=== PATIENT | female | born 1965 | race Caucasian/White ===

== ENCOUNTER 2016-08-11 11:43 | Outpatient (CLI) | payer OTHER ==
[~2016-08-11] VITALS: Ht 165.1 cm; Wt 74.0 kg
[~2016-08-11 11:43] MED LIST: ACET50TA PO; ACET650T12 PO; AUGM875T27 PO; B-12; COLA100C PO; FLAG500T PO; INFL10VL IV; LEVA250T PO; LEVA500T PO; PENT500C PO; PENTASA; PERC5TAB6 PO; TYLE325T5 PO; VITA50TA15 PO; ZOFR20TA PO; diphenhydrAMINE 25 MG CAP PO SCH; nascobal
[2016-08-11] MEDS ORDERED: inFLIXimab INJECTION 600 MG in NS 190 ML IV ONE (13:00)
[2016-08-11] MEDS ORDERED: NS 1,000 ML IV SCH (13:00)
== END 2016-08-11 15:00 | disposition home or self-care (01) ==
LOC: M INFU 11:43
PROVIDERS: ATTEND Internal Medicine Gastroenterology
DX: K50.00 Crohn's disease of small intestine without complications (principal)
CPT/HCPCS: 96413; 96415; J1745

== ENCOUNTER → 2016-10-02 | Outpatient (REF) | payer OTHER ==
[~2016-10-02] MED LIST changes: -COLA100C PO; +COLA100C3 PO; -diphenhydrAMINE 25 MG CAP PO SCH
== END ==
LOC: M LAB REF 09:23
PROVIDERS: ATTEND Physician Assistant
DX: J02.9 Acute pharyngitis, unspecified (principal)

== ENCOUNTER 2016-10-13 08:07 | Outpatient (CLI) | payer OTHER ==
[~2016-10-13] VITALS: Ht 130.8 cm; Wt 74.0 kg
[~2016-10-13 08:07] MED LIST changes: +diphenhydrAMINE 25 MG CAP PO SCH
[2016-10-13] MEDS ORDERED: NS 1,000 ML IV SCH (08:15)
[2016-10-13] MEDS ORDERED: inFLIXimab INJECTION 600 MG in NS 190 ML IV ONE (08:15)
== END 2016-10-13 11:00 | disposition home or self-care (01) ==
LOC: M INFU 08:07
PROVIDERS: ATTEND Internal Medicine Gastroenterology
DX: K50.00 Crohn's disease of small intestine without complications (principal); Z79.52 Long term (current) use of systemic steroids; Z79.899 Other long term (current) drug therapy; Z88.2 Allergy status to sulfonamides
CPT/HCPCS: 96413; 96415; J1745

== ENCOUNTER 2016-12-08 08:23 | Outpatient (CLI) | payer OTHER ==
[~2016-12-08] VITALS: Ht 165.1 cm; Wt 74.0 kg
[2016-12-08] MEDS ORDERED: NS 1,000 ML IV SCH (08:30)
[2016-12-08] MEDS ORDERED: inFLIXimab INJECTION 600 MG in NS 190 ML IV ONE (08:30)
== END 2016-12-08 11:25 | disposition home or self-care (01) ==
LOC: M INFU 08:23
PROVIDERS: ATTEND Internal Medicine Gastroenterology
DX: K50.00 Crohn's disease of small intestine without complications (principal); Z79.899 Other long term (current) drug therapy; Z88.2 Allergy status to sulfonamides
CPT/HCPCS: 96413; 96415; J1745

== ENCOUNTER → 2017-01-12 | Outpatient (REF) | payer OTHER ==
[~2017-01-12] MED LIST changes: -COLA100C3 PO; +COLA100C5 PO; +LEVA1TAB PO; +LEVA1TAB2 PO; -LEVA250T PO; -LEVA500T PO; +PERC5TAB12 PO; -PERC5TAB6 PO; -diphenhydrAMINE 25 MG CAP PO SCH
[2017-01-12 14:35] LABS: MEAN CORPUSCULAR HEMOGLOBIN 30.7 pg (27.0-33.0); MEAN CORPUSCULAR HGB CONC 33.8 g/dl (32.0-36.5); MEAN CORPUSCULAR VOLUME 90.6 fl (80.0-96.0); RED CELL DISTRIBUTION WIDTH 13.5 % (11.5-14.5); WHITE BLOOD COUNT 8.2 K/mm3 (4.0-10.0)
[2017-01-12 14:41] LABS: ALBUMIN 3.4 GM/DL (3.2-5.2); ALBUMIN/GLOBULIN RATIO 0.81 (1.00-1.93); ALKALINE PHOSPHATASE 45 U/L (45-117); ALT/SGPT 41 U/L (12-78); ANION GAP 9 MEQ/L (8-16); AST/SGOT 21 U/L (15-37); BILIRUBIN,DIRECT 0.2 MG/DL (0.0-0.2); BILIRUBIN,TOTAL 0.8 MG/DL (0.2-1.0); BLOOD UREA NITROGEN 12 MG/DL (7-18); CALCIUM LEVEL 8.8 MG/DL (8.5-10.1); CARBON DIOXIDE LEVEL 24 MEQ/L (21-32); CHLORIDE LEVEL 104 MEQ/L (98-107); CREATININE FOR GFR 0.88 MG/DL (0.55-1.02); GLOMERULAR FILTRATION RATE > 60.0 (>58); GLUCOSE, FASTING 96 MG/DL (70-105); PHOSPHORUS LEVEL 2.8 MG/DL (2.5-4.9); POTASSIUM SERUM 4.2 MEQ/L (3.5-5.1); SODIUM LEVEL 137 MEQ/L (136-145); TOTAL PROTEIN 7.6 GM/DL (6.4-8.2)
== END ==
LOC: M LABDRAW1 13:58
PROVIDERS: ATTEND Internal Medicine Gastroenterology
DX: K50.80 Crohn's disease of both small and large intestine without complications (principal)

== ENCOUNTER 2017-02-06 07:49 | Outpatient (CLI) | payer OTHER ==
[~2017-02-06] VITALS: Ht 165.1 cm; Wt 74.0 kg
[~2017-02-06 07:49] MED LIST changes: +diphenhydrAMINE 25 MG CAP PO SCH
[2017-02-06] MEDS ORDERED: NS 1,000 ML IV SCH (08:00)
[2017-02-06] MEDS ORDERED: inFLIXimab INJECTION 600 MG in NS 190 ML IV ONE (08:00)
== END 2017-02-06 10:45 | disposition home or self-care (01) ==
LOC: M INFU 07:49
PROVIDERS: ATTEND Internal Medicine Gastroenterology
DX: K50.00 Crohn's disease of small intestine without complications (principal); Z79.899 Other long term (current) drug therapy; Z88.2 Allergy status to sulfonamides

== ENCOUNTER → 2017-04-02 | Outpatient (REF) | payer OTHER ==
[~2017-04-02] MED LIST changes: -diphenhydrAMINE 25 MG CAP PO SCH
== END ==
LOC: M SFHCWAGY 08:39
PROVIDERS: ATTEND Nurse Practitioner Family
DX: Z12.4 Encounter for screening for malignant neoplasm of cervix (principal); N76.0 Acute vaginitis

== ENCOUNTER → 2017-04-02 | Outpatient (CLI) | payer OTHER ==
--- NOTE | 2017-04-02 10:27 | REP ---
Bilateral screening digital mammogram: T 29 T 26 April 10, 2017. Comparison is 03/08 2009. The breast parenchyma is moderately dense a heterogeneous pattern, unchanged. Code T12. Impression: There is no evidence of malignancy. BIRADS category 1 negative mammogram. T1 T 25 T 20 The patient letter M1. Signed by Destin Willson MD 04/02/2017 10:19 A
== END ==
LOC: M WHC 08:13
PROVIDERS: ATTEND Nurse Practitioner Family
DX: Z12.31 Encounter for screening mammogram for malignant neoplasm of breast (principal); R92.8 Other abnormal and inconclusive findings on diagnostic imaging of breast

== ENCOUNTER 2017-04-03 11:48 | Outpatient (CLI) | payer OTHER ==
[~2017-04-03] VITALS: Ht 165.1 cm; Wt 74.0 kg
[2017-04-03] MEDS ORDERED: diphenhydrAMINE 25 MG CAP PO ONE (12:15)
[2017-04-03] MEDS ORDERED: NS 1,000 ML IV SCH (12:15)
[2017-04-03] MEDS ORDERED: inFLIXimab INJECTION 600 MG in NS 190 ML IV ONE (13:00)
== END 2017-04-03 14:50 | disposition home or self-care (01) ==
LOC: M INFU 11:48
PROVIDERS: ATTEND Internal Medicine Gastroenterology
DX: K50.90 Crohn's disease, unspecified, without complications (principal); Z88.2 Allergy status to sulfonamides; Z79.899 Other long term (current) drug therapy
CPT/HCPCS: 96413; 96415; J1745

== ENCOUNTER 2017-05-25 08:29 | Outpatient (CLI) | payer OTHER ==
[2017-05-25] MEDS ORDERED: diphenhydrAMINE 25 MG CAP PO ONE (09:00)
[2017-05-25] MEDS ORDERED: ACETAMINOPHEN TAB 650MG DOSE (2X325MG) PO ONE (09:00)
[2017-05-25] MEDS ORDERED: NS 1,000 ML IV SCH (09:00)
[2017-05-25] MEDS ORDERED: inFLIXimab INJECTION 600 MG in NS 190 ML IV ONE (09:00)
== END 2017-05-25 11:55 | disposition home or self-care (01) ==
LOC: M INFU 08:29
PROVIDERS: ATTEND Internal Medicine Gastroenterology
DX: K50.00 Crohn's disease of small intestine without complications (principal); D51.8 Other vitamin B12 deficiency anemias; I10 Essential (primary) hypertension; Z79.899 Other long term (current) drug therapy; Z91.040 Latex allergy status
CPT/HCPCS: 96413; 96415; J1745

== ENCOUNTER → 2017-06-19 | Outpatient (REF) | payer OTHER ==
[2017-06-19 12:55] LABS: BASO # 0.1 10^3/uL (0.0-0.2); EOS # 0.1 10^3/uL (0.0-0.50); EOS % 1.4 % (0.0-3.0); IMMATURE GRANULOCYTE % 0.3 % (0-0); LYMPH # 2.1 10^3/uL (1.5-4.5); LYMPH % 28.4 % (24.0-44.0); MEAN CORPUSCULAR HEMOGLOBIN 29.5 pg (27.0-33.0); MEAN CORPUSCULAR HGB CONC 33.9 g/dl (32.0-36.5); MEAN CORPUSCULAR VOLUME 87.1 fl (80.0-96.0); MONO # 0.5 10^3/uL (0.0-0.8); NEUTROPHILS # 4.5 10^3/uL (1.8-7.7); NEUTROPHILS % 61.9 % (36.0-66.0); PLATELET COUNT, AUTOMATED 296 10^3/uL (150-450); RED CELL DISTRIBUTION WIDTH 13.7 % (11.5-14.5); WHITE BLOOD COUNT 7.3 10^3/uL (4.0-10.0)
[2017-06-19 13:17] LABS: ALBUMIN 3.6 GM/DL (3.2-5.2); ALBUMIN/GLOBULIN RATIO 0.95 (1.00-1.93); ALKALINE PHOSPHATASE 57 U/L (45-117); ALT/SGPT 29 U/L (12-78); ANION GAP 9 MEQ/L (8-16); AST/SGOT 16 U/L (7-37); BILIRUBIN,TOTAL 0.6 MG/DL (0.2-1.0); BLOOD UREA NITROGEN 13 MG/DL (7-18); CALCIUM LEVEL 8.5 MG/DL (8.5-10.1); CARBON DIOXIDE LEVEL 27 MEQ/L (21-32); CHLORIDE LEVEL 104 MEQ/L (98-107); CHOLESTEROL LEVEL 150 MG/DL (<200); CREATININE FOR GFR 0.94 MG/DL (0.55-1.02); GLOMERULAR FILTRATION RATE > 60.0 (>58); GLUCOSE, FASTING 82 MG/DL (70-105); POTASSIUM SERUM 4.3 MEQ/L (3.5-5.1); SODIUM LEVEL 140 MEQ/L (136-145); TOTAL PROTEIN 7.4 GM/DL (6.4-8.2); TRIGLYCERIDES LEVEL 134 MG/DL (<150)
== END ==
LOC: M LABDRAW1 12:29
DX: Z00.00 Encounter for general adult medical examination without abnormal findings (principal)

== ENCOUNTER 2017-07-22 11:52 | Outpatient (CLI) | payer OTHER ==
[2017-07-22] MEDS: NS 1,000 ML IV (12:11)
[2017-07-22] MEDS: ACETAMINOPHEN TAB 650MG DOSE (2X325MG) PO (12:11)
[2017-07-22] MEDS: diphenhydrAMINE 25 MG CAP PO (12:11)
[2017-07-22] MEDS: inFLIXimab INJECTION 600 MG in NS 190 ML IV (12:32)
[2017-07-22] MEDS ORDERED: INFLIXIMAB BIOSIMILAR 600 MG in NS 190 ML IV (13:00)
== END 2017-07-22 14:45 | disposition home or self-care (01) ==
LOC: M INFU 11:52
DX: K50.90 Crohn's disease, unspecified, without complications (principal); Z88.2 Allergy status to sulfonamides; Z79.899 Other long term (current) drug therapy
CPT/HCPCS: 96413

== ENCOUNTER 2017-09-14 08:56 | Outpatient (CLI) | payer OTHER ==
[2017-09-14] MEDS: ACETAMINOPHEN TAB 650MG DOSE (2X325MG) PO (09:15)
[2017-09-14] MEDS: diphenhydrAMINE 25 MG CAP PO (09:21)
[2017-09-14] MEDS: NS 1,000 ML IV (09:59)
[2017-09-14] MEDS: inFLIXimab INJECTION 600 MG in NS 190 ML IV (09:59)
== END 2017-09-14 12:30 | disposition home or self-care (01) ==
LOC: M INFU 08:56
DX: K50.00 Crohn's disease of small intestine without complications (principal); D64.9 Anemia, unspecified; Z79.899 Other long term (current) drug therapy
CPT/HCPCS: J1745

== ENCOUNTER 2017-11-09 11:43 | Outpatient (CLI) | payer OTHER ==
[2017-11-09] MEDS: ACETAMINOPHEN TAB 650MG DOSE (2X325MG) PO (12:18)
[2017-11-09] MEDS: diphenhydrAMINE 25 MG CAP PO (12:18)
[2017-11-09] MEDS: NS 1,000 ML IV (12:19)
[2017-11-09] MEDS: inFLIXimab INJECTION 600 MG in NS 190 ML IV (12:41)
[2017-11-09] MEDS: FILTER 1.2 MICRON (ADULT TPN/MANNITOL/REMICADE) XX (12:41)
== END 2017-11-09 15:00 | disposition home or self-care (01) ==
LOC: M INFU 11:43
DX: K50.00 Crohn's disease of small intestine without complications (principal); Z88.8 Allergy status to other drugs, medicaments and biological substances; Z79.899 Other long term (current) drug therapy
CPT/HCPCS: 96413

== ENCOUNTER → 2018-02-02 | Outpatient (REF) | payer OTHER ==
[2018-02-02 10:52] LABS: HEMATOCRIT 37.2 % (36.0-47.0); HEMOGLOBIN 12.5 g/dl (12.0-15.5); MEAN CORPUSCULAR HEMOGLOBIN 29.1 pg (27.0-33.0); MEAN CORPUSCULAR HGB CONC 33.6 g/dl (32.0-36.5); MEAN CORPUSCULAR VOLUME 86.7 fl (80.0-96.0); PLATELET COUNT, AUTOMATED 255 10^3/uL (150-450); RED BLOOD COUNT 4.29 10^6/uL (4.00-5.40); RED CELL DISTRIBUTION WIDTH 13.9 % (11.5-14.5); WHITE BLOOD COUNT 7.9 10^3/uL (4.0-10.0)
[2018-02-02 11:11] LABS: ALBUMIN/GLOBULIN RATIO 0.81 (1.00-1.93); ALKALINE PHOSPHATASE 41 U/L (45-117); ALT/SGPT 31 U/L (12-78); ANION GAP 8 MEQ/L (8-16); AST/SGOT 19 U/L (7-37); BILIRUBIN,DIRECT 0.2 MG/DL (0.0-0.2); BILIRUBIN,TOTAL 0.6 MG/DL (0.2-1.0); BLOOD UREA NITROGEN 9 MG/DL (7-18); C REACTIVE PROTEIN QUANTITATIV < 0.30 MG/DL (0.00-0.30); CALCIUM LEVEL 8.4 MG/DL (8.5-10.1); CARBON DIOXIDE LEVEL 28 MEQ/L (21-32); CHLORIDE LEVEL 106 MEQ/L (98-107); CREATININE FOR GFR 0.96 MG/DL (0.55-1.30); ERYTHROCYTE SEDIMENTATION RATE 21 mm/hr (0-30); GLOMERULAR FILTRATION RATE > 60.0 (>51); GLUCOSE, FASTING 88 MG/DL (70-100); PHOSPHORUS LEVEL 2.7 MG/DL (2.5-4.9); POTASSIUM SERUM 3.8 MEQ/L (3.5-5.1); SODIUM LEVEL 142 MEQ/L (136-145); TOTAL PROTEIN 6.7 GM/DL (6.4-8.2)
== END ==
LOC: M LABDRAW1 10:19
DX: Z00.00 Encounter for general adult medical examination without abnormal findings (principal)

== ENCOUNTER 2018-03-08 06:56 | Outpatient (CLI) | payer OTHER ==
[2018-03-08] MEDS: ACETAMINOPHEN TAB 650MG DOSE (2X325MG) PO (07:30)
[2018-03-08] MEDS: FILTER 1.2 MICRON (ADULT TPN/MANNITOL/REMICADE) XX (07:30)
[2018-03-08] MEDS: diphenhydrAMINE 25 MG CAP PO (07:44)
[2018-03-08] MEDS: NS 1,000 ML IV (07:44)
[2018-03-08] MEDS: inFLIXimab INJECTION 600 MG in NS 190 ML IV (08:01)
== END 2018-03-08 10:20 | disposition home or self-care (01) ==
LOC: M INFU 06:56
DX: K50.019 Crohn's disease of small intestine with unspecified complications (principal); Z88.2 Allergy status to sulfonamides; Z91.040 Latex allergy status; Z90.49 Acquired absence of other specified parts of digestive tract; Z87.442 Personal history of urinary calculi
CPT/HCPCS: 96365

== ENCOUNTER 2018-05-03 06:56 | Outpatient (CLI) | payer OTHER ==
[2018-05-03] MEDS: FILTER 1.2 MICRON (ADULT TPN/MANNITOL/REMICADE) XX ×2 (07:15)
[2018-05-03] MEDS: NS 1,000 ML IV ×2 (07:15)
[2018-05-03] MEDS: ACETAMINOPHEN TAB 650MG DOSE (2X325MG) PO ×2 (07:15)
[2018-05-03] MEDS: diphenhydrAMINE 25 MG CAP PO ×2 (07:22)
[2018-05-03] MEDS: inFLIXimab INJECTION 600 MG in NS 190 ML IV (07:44)
== END 2018-05-03 10:20 | disposition home or self-care (01) ==
LOC: M INFU 06:56
DX: K50.90 Crohn's disease, unspecified, without complications (principal)
CPT/HCPCS: 96413

== ENCOUNTER 2018-06-28 06:57 | Day surgery (SDC) | payer OTHER ==
[~2018-06-28] VITALS: Ht 160 cm; Wt 71.7 kg
[~2018-06-28 06:57] MED LIST changes: -LEVA1TAB PO; +LEVA250T13 PO; +NASC1SPR; +NS 1,000 ML IV ONE; +PRED20TA PO; -ZOFR20TA PO; +ZOFR4TAB16 PO
[2018-06-28] MEDS ORDERED: fentaNYL 100 MCG/2 ML INJECTION (J3010) As Ordered ONE (07:30)
[2018-06-28] MEDS ORDERED: PROPOFOL 500 MG/50 ML VIAL As Ordered ONE (07:31)
[2018-06-28] MEDS ORDERED: LIDOCAINE 2% INJ 100 MG/5 ML SDV (FOR ANES.) As Ordered ONE (07:31)
--- NOTE | 2018-06-28 08:34 | ROOR ---
Patient Name: Kelly Sewell Procedure Date: 06/28/2018 8:12 AM Date of : 1965 Age: 52 Room: [facility] Gender: Female Note Status: Finalized Procedure: Upper GI endoscopy Indications: Heartburn Providers: Joao Moreland MD Referring MD: Iza Olmos MD Requesting Provider: Medicines: Monitored Anesthesia Care Complications: No immediate complications. Procedure: Pre-Anesthesia Assessment: - The heart rate, respiratory rate, oxygen saturations, blood pressure, adequacy of pulmonary ventilation, and response to care were monitored throughout the procedure. The Endoscope was introduced through the mouth, and advanced to the second part of duodenum. The upper GI endoscopy was accomplished without difficulty. The patient tolerated the procedure well. Findings: The Z-line was regular and was found 35 cm from the incisors. No other significant abnormalities were identified in a careful examination of the stomach. The exam of the duodenum was otherwise normal. Impression: - Z-line regular, 35 cm from the incisors. - No specimens collected. - The examination was otherwise normal. Recommendation: - Patient has a contact number available for emergencies. The signs and symptoms of potential delayed complications were discussed with the patient. Return to normal activities tomorrow. Written discharge instructions were provided to the patient. - Resume previous diet. - Discharge patient to home. - Continue present medications. - Follow an antireflux regimen. - Return to referring physician. - The findings and recommendations were discussed with the patient's family. Joao Moreland MD Joao Moreland MD 06/28/2018 8:34:31 AM This report has been signed electronically. Number of Addenda: 0 Note Initiated On: 06/28/2018 8:12 AM Estimated Blood Loss: Estimated blood loss: none.
[2018-06-28] MEDS ORDERED: PROPOFOL 200 MG/20 ML VIAL As Ordered ONE (08:57)
--- NOTE | 2018-06-28 09:06 | ROOR ---
Patient Name: Kelly Sewell Procedure Date: 06/28/2018 8:13 AM Date of : 1965 Age: 52 Room: [facility] Gender: Female Note Status: Finalized Procedure: Colonoscopy to Anastomosis. Indications: High risk colon cancer surveillance: Crohn's disease Providers: Joao Moreland MD Referring MD: Iza Olmos MD Requesting Provider: Medicines: Monitored Anesthesia Care Complications: No immediate complications. Procedure: Pre-Anesthesia Assessment: - The heart rate, respiratory rate, oxygen saturations, blood pressure, adequacy of pulmonary ventilation, and response to care were monitored throughout the procedure. The Colonoscope was introduced through the anus and advanced to the ileocolonic anastomosis. The colonoscopy was performed without difficulty. The patient tolerated the procedure well. The quality of the bowel preparation was excellent. Findings: The perianal and digital rectal examinations were normal. Non-bleeding internal hemorrhoids were found during retroflexion. The hemorrhoids were small and Grade I (internal hemorrhoids that do not prolapse). No other significant abnormalities were identified in a careful examination of the remainder of the colon. The exam was otherwise without abnormality. Impression: - Non-bleeding internal hemorrhoids. - The examination was otherwise normal. - No specimens collected. - The examination was otherwise normal. Recommendation: - Patient has a contact number available for emergencies. The signs and symptoms of potential delayed complications were discussed with the patient. Return to normal activities tomorrow. Written discharge instructions were provided to the patient. - Resume previous diet. - Discharge patient to home. - Continue present medications. - Repeat colonoscopy in 5 years for surveillance. - Return to referring physician. - The findings and recommendations were discussed with the patient's family. Joao Moreland MD Joao Moreland MD 06/28/2018 9:05:55 AM This report has been signed electronically. Number of Addenda: 0 Note Initiated On: 06/28/2018 8:13 AM Estimated Blood Loss: Estimated blood loss: none.
[2018-06-28 09:22] VITALS: BP 135/76
== END 2018-06-28 09:32 | disposition home or self-care (01) ==
LOC: M OPP 06:57
PROVIDERS: ATTEND Internal Medicine Gastroenterology
DX: K50.90 Crohn's disease, unspecified, without complications (principal); K64.0 First degree hemorrhoids; R12 Heartburn; Z98.0 Intestinal bypass and anastomosis status
CPT/HCPCS: 43235; 45378; J3010

== ENCOUNTER 2018-06-29 07:38 | Outpatient (CLI) | payer OTHER ==
[~2018-06-29] VITALS: Ht 160 cm; Wt 74.0 kg
[~2018-06-29 07:38] MED LIST changes: -NS 1,000 ML IV ONE
[2018-06-29] MEDS ORDERED: ACETAMINOPHEN TAB 650MG DOSE (2X325MG) PO ONE (07:45)
[2018-06-29] MEDS ORDERED: FILTER 1.2 MICRON (ADULT TPN/MANNITOL/REMICADE) XX ONE (07:45)
[2018-06-29] MEDS ORDERED: inFLIXimab INJECTION 600 MG in NS 190 ML IV ONE (07:45)
[2018-06-29] MEDS ORDERED: NS 1,000 ML IV SCH (07:45)
[2018-06-29] MEDS ORDERED: diphenhydrAMINE 25 MG CAP PO ONE (07:45)
[2018-06-29 07:56] VITALS: BP 120/69
[2018-06-29 10:42] VITALS: BP 122/68
== END 2018-06-29 10:45 | disposition home or self-care (01) ==
LOC: M INFU 07:38
PROVIDERS: ATTEND Internal Medicine Gastroenterology
DX: K50.00 Crohn's disease of small intestine without complications (principal)

== ENCOUNTER 2018-08-24 07:08 | Outpatient (CLI) | payer OTHER ==
[2018-08-24] VITALS (8 sets, daily range): BP systolic 102–149; BP diastolic 55–74
[~2018-08-24] VITALS: Ht 158.8 cm; Wt 74.0 kg
[2018-08-24] MEDS ORDERED: ACETAMINOPHEN TAB 650MG DOSE (2X325MG) PO ONE (07:30)
[2018-08-24] MEDS ORDERED: diphenhydrAMINE 25 MG CAP PO ONE (07:30)
[2018-08-24] MEDS ORDERED: inFLIXimab INJECTION 600 MG in NS 190 ML IV ONE (07:30)
[2018-08-24] MEDS ORDERED: NS 1,000 ML IV SCH (07:30)
[2018-08-24] MEDS ORDERED: FILTER 1.2 MICRON (ADULT TPN/MANNITOL/REMICADE) XX ONE (07:30)
== END 2018-08-24 10:30 | disposition home or self-care (01) ==
LOC: M INFU 07:08
PROVIDERS: ATTEND Internal Medicine Gastroenterology
DX: K50.00 Crohn's disease of small intestine without complications (principal)

== ENCOUNTER 2018-10-19 07:15 | Outpatient (CLI) | payer OTHER ==
[~2018-10-19] VITALS: Ht 157.5 cm; Wt 74.0 kg
[~2018-10-19 07:15] MED LIST changes: -ACET50TA PO; +MAPA500T17 PO
[2018-10-19 07:20] VITALS: BP 130/79
[2018-10-19] MEDS ORDERED: FILTER 1.2 MICRON (ADULT TPN/MANNITOL/REMICADE) XX ONE (07:30)
[2018-10-19] MEDS ORDERED: NS 1,000 ML IV SCH (07:30)
[2018-10-19] MEDS ORDERED: diphenhydrAMINE 25 MG CAP PO ONE (07:30)
[2018-10-19] MEDS ORDERED: inFLIXimab INJECTION 600 MG in NS 190 ML IV ONE (07:30)
[2018-10-19] MEDS ORDERED: ACETAMINOPHEN TAB 650MG DOSE (2X325MG) PO ONE (07:30)
[2018-10-19 08:25] VITALS: BP 129/65
[2018-10-19 09:15] VITALS: BP 124/67
[2018-10-19 09:30] VITALS: BP 131/65
== END 2018-10-19 09:30 | disposition home or self-care (01) ==
LOC: M INFU 07:15
PROVIDERS: ATTEND Internal Medicine Gastroenterology
DX: K50.00 Crohn's disease of small intestine without complications (principal)

== ENCOUNTER 2018-12-14 07:21 | Outpatient (CLI) | payer OTHER ==
[~2018-12-14] VITALS: Ht 157.5 cm; Wt 74.0 kg
[2018-12-14] MEDS ORDERED: ACETAMINOPHEN 650MG PO PRIOR TO INFUSION PO ONE (07:30)
[2018-12-14] MEDS ORDERED: NS 1,000 ML IV SCH (07:30)
[2018-12-14] MEDS ORDERED: diphenhydrAMINE 25MG PO PRIOR TO INFUSION PO ONE (07:30)
[2018-12-14] MEDS ORDERED: FILTER 1.2 MICRON (ADULT TPN/MANNITOL/REMICADE) XX ONE (07:30)
[2018-12-14 07:52] VITALS: BP 126/75
[2018-12-14] MEDS ORDERED: inFLIXimab INJECTION 600 MG in NS 190 ML IV ONE (08:00)
[2018-12-14 09:08] VITALS: BP 111/69
== END 2018-12-14 09:10 | disposition home or self-care (01) ==
LOC: M INFU 07:21
PROVIDERS: ATTEND Internal Medicine Gastroenterology
DX: K50.00 Crohn's disease of small intestine without complications (principal)

== ENCOUNTER 2019-02-08 07:28 | Outpatient (CLI) | payer OTHER ==
[~2019-02-08] VITALS: Ht 157.5 cm; Wt 74.0 kg
[2019-02-08 07:38] VITALS: BP 144/77
[2019-02-08] MEDS: ACETAMINOPHEN 650MG PO PRIOR TO INFUSION PO ONE (07:53)
[2019-02-08] MEDS: NS 1,000 ML IV SCH (07:54)
[2019-02-08] MEDS: diphenhydrAMINE 25MG PO PRIOR TO INFUSION PO ONE (07:57)
[2019-02-08] MEDS: FILTER 1.2 MICRON (ADULT TPN/MANNITOL/REMICADE) XX ONE (07:57)
[2019-02-08] MEDS: inFLIXimab INJECTION 600 MG in NS 190 ML IV ONE (08:27)
[2019-02-08 08:50] VITALS: BP 124/76
[2019-02-08 09:20] VITALS: BP 123/67
[2019-02-08 09:40] VITALS: BP 112/62
[2019-02-08 10:00] VITALS: BP 152/85
== END 2019-02-08 10:00 | disposition home or self-care (01) ==
LOC: M INFU 07:28
PROVIDERS: ATTEND Internal Medicine Gastroenterology
DX: K50.00 Crohn's disease of small intestine without complications (principal)

== ENCOUNTER 2019-04-05 07:10 | Outpatient (CLI) | payer OTHER ==
[~2019-04-05] VITALS: Ht 157.5 cm; Wt 74.0 kg
[2019-04-05 07:15] VITALS: BP 133/79
[2019-04-05] MEDS ORDERED: diphenhydrAMINE 25MG PO PRIOR TO INFUSION PO ONE (07:30)
[2019-04-05] MEDS ORDERED: ACETAMINOPHEN 650MG PO PRIOR TO INFUSION PO ONE (07:30)
[2019-04-05] MEDS ORDERED: FILTER 1.2 MICRON (ADULT TPN/MANNITOL/REMICADE) XX ONE (07:30)
[2019-04-05] MEDS ORDERED: inFLIXimab INJECTION 600 MG in NS 190 ML IV ONE (07:30)
[2019-04-05] MEDS ORDERED: NS 1,000 ML IV SCH (07:30)
[2019-04-05 08:05] VITALS: BP 120/68
[2019-04-05 08:35] VITALS: BP 120/66
[2019-04-05 09:00] VITALS: BP 121/74
[2019-04-05 09:15] VITALS: BP 121/72
== END 2019-04-05 09:15 | disposition home or self-care (01) ==
LOC: M INFU 07:10
PROVIDERS: ATTEND Internal Medicine Gastroenterology
DX: K50.00 Crohn's disease of small intestine without complications (principal); Z88.2 Allergy status to sulfonamides; Z91.040 Latex allergy status

== ENCOUNTER → 2019-04-27 | Outpatient (REF) | payer OTHER ==
[2019-04-27 11:58] LABS: HEMATOCRIT 40.9 % (36.0-47.0); HEMOGLOBIN 13.5 g/dl (12.0-15.5); MEAN CORPUSCULAR HEMOGLOBIN 29.9 pg (27.0-33.0); MEAN CORPUSCULAR VOLUME 90.7 fl (80.0-96.0); PLATELET COUNT, AUTOMATED 257 10^3/uL (150-450); RED BLOOD COUNT 4.51 10^6/uL (4.00-5.40); WHITE BLOOD COUNT 7.7 10^3/uL (4.0-10.0)
[2019-04-27 12:08] LABS: ALBUMIN 3.4 GM/DL (3.2-5.2); ALT/SGPT 37 U/L (12-78); BILIRUBIN,DIRECT 0.2 MG/DL (0.0-0.2); BILIRUBIN,TOTAL 0.9 MG/DL (0.2-1.0); BLOOD UREA NITROGEN 10 MG/DL (7-18); C REACTIVE PROTEIN QUANTITATIV 0.43 MG/DL (0.00-0.30); CALCIUM LEVEL 8.4 MG/DL (8.5-10.1); CARBON DIOXIDE LEVEL 27 MEQ/L (21-32); CHLORIDE LEVEL 103 MEQ/L (98-107); CREATININE FOR GFR 0.99 MG/DL (0.55-1.30); GLOMERULAR FILTRATION RATE > 60.0 (>51); GLUCOSE, FASTING 85 MG/DL (70-100); PHOSPHORUS LEVEL 2.6 MG/DL (2.5-4.9); POTASSIUM SERUM 3.8 MEQ/L (3.5-5.1); SODIUM LEVEL 138 MEQ/L (136-145); TOTAL PROTEIN 7.4 GM/DL (6.4-8.2)
[2019-04-27 14:34] LABS: ERYTHROCYTE SEDIMENTATION RATE 23 mm/hr (0-30)
== END ==
LOC: M LABDRAW1 08:25
PROVIDERS: ATTEND Internal Medicine Gastroenterology
DX: K50.80 Crohn's disease of both small and large intestine without complications (principal)

== ENCOUNTER 2019-05-31 07:23 | Outpatient (CLI) | payer OTHER ==
[~2019-05-31] VITALS: Ht 157.5 cm; Wt 74.0 kg
[2019-05-31 07:35] VITALS: BP 145/82
[2019-05-31] MEDS ORDERED: NS 1,000 ML IV SCH (07:45)
[2019-05-31] MEDS ORDERED: ACETAMINOPHEN 650MG PO PRIOR TO INFUSION PO ONE (07:45)
[2019-05-31] MEDS ORDERED: diphenhydrAMINE 25MG PO PRIOR TO INFUSION PO ONE (07:45)
[2019-05-31] MEDS ORDERED: inFLIXimab INJECTION 600 MG in NS 190 ML IV ONE (08:00)
[2019-05-31 09:20] VITALS: BP 136/83
== END 2019-05-31 09:35 | disposition home or self-care (01) ==
LOC: M INFU 07:23
PROVIDERS: ATTEND Internal Medicine Gastroenterology
DX: K50.00 Crohn's disease of small intestine without complications (principal); Z88.2 Allergy status to sulfonamides; Z91.040 Latex allergy status

== ENCOUNTER 2019-08-02 07:35 | Outpatient (CLI) | payer OTHER ==
[~2019-08-02] VITALS: Ht 157.5 cm; Wt 74.0 kg
[2019-08-02] MEDS ORDERED: diphenhydrAMINE 25 MG CAP As Ordered ONE (07:52)
[2019-08-02] MEDS ORDERED: diphenhydrAMINE 25MG PO PRIOR TO INFUSION PO ONE (08:00)
[2019-08-02] MEDS ORDERED: NS 1,000 ML IV SCH (08:00)
[2019-08-02] MEDS ORDERED: inFLIXimab INJECTION 600 MG in NS 190 ML IV ONE (08:00)
[2019-08-02] MEDS ORDERED: ACETAMINOPHEN 650MG PO PRIOR TO INFUSION PO ONE (08:00)
[2019-08-02 08:03] VITALS: BP 123/66
[2019-08-02] MEDS ORDERED: PRIL20TA2 PO (08:06)
[2019-08-02 09:30] VITALS: BP 129/83
== END 2019-08-02 09:30 | disposition home or self-care (01) ==
LOC: M INFU 07:35
PROVIDERS: ATTEND Internal Medicine Gastroenterology
DX: K50.00 Crohn's disease of small intestine without complications (principal); Z88.2 Allergy status to sulfonamides; Z91.040 Latex allergy status

== ENCOUNTER 2019-09-20 07:22 | Outpatient (CLI) | payer OTHER ==
[~2019-09-20] VITALS: Ht 157.5 cm; Wt 74.0 kg
[~2019-09-20 07:22] MED LIST changes: +PRIL20TA2 PO
[2019-09-20 07:34] VITALS: BP 136/72
[2019-09-20] MEDS ORDERED: diphenhydrAMINE 25MG PO PRIOR TO INFUSION PO ONE (08:00)
[2019-09-20] MEDS ORDERED: inFLIXimab INJECTION 600 MG in NS 190 ML IV ONE (08:00)
[2019-09-20] MEDS ORDERED: NS 1,000 ML IV SCH (08:00)
[2019-09-20] MEDS ORDERED: ACETAMINOPHEN 650MG PO PRIOR TO INFUSION PO ONE (08:00)
[2019-09-20 09:25] VITALS: BP 133/77
== END 2019-09-20 09:15 | disposition home or self-care (01) ==
LOC: M INFU 07:22
PROVIDERS: ATTEND Internal Medicine Gastroenterology
DX: K50.00 Crohn's disease of small intestine without complications (principal); Z88.2 Allergy status to sulfonamides; Z91.040 Latex allergy status

== ENCOUNTER 2019-11-15 07:24 | Outpatient (CLI) | payer OTHER ==
[~2019-11-15] VITALS: Ht 157.5 cm; Wt 74.0 kg
[2019-11-15] MEDS ORDERED: diphenhydrAMINE 25MG CAP PO ONE (07:30)
[2019-11-15] MEDS ORDERED: NS 1,000 ML IV SCH (07:30)
[2019-11-15] MEDS ORDERED: ACETAMINOPHEN 650MG ER TAB (TYLENOL ARTHRITIS) PO ONE (07:30)
[2019-11-15] MEDS ORDERED: inFLIXimab INJECTION 600 MG in NS 190 ML IV ONE (07:30)
[2019-11-15 08:08] VITALS: BP 124/81
[2019-11-15 08:25] VITALS: BP 116/69
[2019-11-15 09:00] VITALS: BP 133/93
== END 2019-11-15 09:15 | disposition home or self-care (01) ==
LOC: M INFU 07:24
PROVIDERS: ATTEND Internal Medicine Gastroenterology
DX: K50.90 Crohn's disease, unspecified, without complications (principal); Z88.2 Allergy status to sulfonamides; Z91.040 Latex allergy status

== ENCOUNTER → 2019-11-18 | Outpatient (REF) | payer OTHER | LOC: M SFHCWAGY 17:48 | PROVIDERS: ATTEND Nurse Practitioner Family | DX: Z12.4 Encounter for screening for malignant neoplasm of cervix (principal) | CPT/HCPCS: 87624; G0123 ==

== ENCOUNTER → 2019-11-18 | Outpatient (CLI) | payer OTHER ==
--- NOTE | 2019-11-18 12:17 | REPMRS ---
Patient History The patient states she had a clinical breast exam in October 2019. Family history of breast cancer at age 50 or over in sister. Digital Woman Screen Mammo: November 18, 2019 - Exam #: [id number] Bilateral CC and MLO view(s) were taken. Technologist: Gregoria Gamino Technologist Prior study comparison: April 02, 2017, digital woman screen mammo performed at [facility]. July 07, 2014, digital woman screen mammo performed at [facility]. July 01, 2013, digital woman screen mammo performed at [facility]. FINDINGS: There are scattered fibroglandular densities. The Volpara volumetric breast density category is:B. There has been no change in the appearance of the mammogram from the prior studies. There is a mild amount of scattered fibroglandular density which is fairly symmetric. There is no interval development of dominant mass, architectural distortion, or grouped microcalcification suggestive of malignancy. 3-D tomosynthesis shows no additional findings. Assessment: BI-RADS/ACR category 1 mammogram. Negative Mammogram. Recommendation Breast MRI of both breasts in 6 months. Routine screening mammogram of both breasts in 1 year (for women over age 40). This patient's Lifetime Breast Cancer Risk is estimated at 23.2 %. Annual screening Breast MRI scanniing is recommended for patient's whose lifetime risk assessment is over 20%. This mammogram was interpreted with the aid of an FDA-approved computer-aided dectection system. Electronically Signed By: Andrea Delgado MD 11/18/19 [id number]
== END ==
LOC: M WHC 11:18
PROVIDERS: ATTEND Nurse Practitioner Family
DX: Z12.31 Encounter for screening mammogram for malignant neoplasm of breast (principal)

== ENCOUNTER 2020-01-10 07:22 | Outpatient (CLI) | payer OTHER ==
[~2020-01-10] VITALS: Ht 157.5 cm; Wt 74.0 kg
[2020-01-10] MEDS ORDERED: inFLIXimab INJECTION 600 MG in NS 190 ML IV ONE (07:45)
[2020-01-10] MEDS ORDERED: NS 1,000 ML IV SCH (07:45)
[2020-01-10] MEDS ORDERED: diphenhydrAMINE 25MG CAP PO ONE (07:45)
[2020-01-10 07:54] VITALS: BP 149/77
[2020-01-10 08:20] VITALS: BP 128/78
[2020-01-10 09:16] VITALS: BP 140/89
== END 2020-01-10 09:15 | disposition home or self-care (01) ==
LOC: M INFU 07:22
PROVIDERS: ATTEND Internal Medicine Gastroenterology
DX: K50.00 Crohn's disease of small intestine without complications (principal)

== ENCOUNTER 2020-03-06 07:59 | Outpatient (CLI) | payer OTHER ==
[~2020-03-06] VITALS: Ht 157.5 cm; Wt 74.0 kg
[2020-03-06] MEDS ORDERED: diphenhydrAMINE 25MG PO PRIOR TO INFUSION PO ONE (08:00)
[2020-03-06] MEDS ORDERED: inFLIXimab INJECTION 600 MG in NS 190 ML IV ONE (08:00)
[2020-03-06] MEDS ORDERED: NS 1,000 ML IV SCH (08:00)
[2020-03-06] MEDS ORDERED: ACETAMINOPHEN 650MG PO PRIOR TO INFUSION PO ONE (08:00)
[2020-03-06] MEDS ORDERED: diphenhydrAMINE 25MG CAP As Ordered ONE (08:21)
[2020-03-06 08:26] VITALS: BP 151/83
[2020-03-06 08:28] VITALS: BP 151/83
[2020-03-06 08:45] VITALS: BP 151/83
[2020-03-06 09:00] VITALS: BP 132/78
[2020-03-06 09:50] VITALS: BP 159/87
== END 2020-03-06 09:55 | disposition home or self-care (01) ==
LOC: M INFU 07:59
PROVIDERS: ATTEND Internal Medicine Gastroenterology
DX: K50.00 Crohn's disease of small intestine without complications (principal)

== ENCOUNTER 2020-05-01 07:28 | Outpatient (CLI) | payer OTHER ==
[~2020-05-01] VITALS: Ht 157.5 cm; Wt 74.0 kg
[2020-05-01] MEDS ORDERED: diphenhydrAMINE 25MG PO PRIOR TO INFUSION PO ONE (07:30)
[2020-05-01] MEDS ORDERED: ACETAMINOPHEN 650MG PO PRIOR TO INFUSION PO ONE (07:30)
[2020-05-01] MEDS ORDERED: inFLIXimab INJECTION 600 MG in NS 190 ML IV ONE (07:30)
[2020-05-01] MEDS ORDERED: NS 1,000 ML IV SCH (07:30)
[2020-05-01 07:36] VITALS: BP 133/78
[2020-05-01 07:44] VITALS: BP 123/78
[2020-05-01 08:36] VITALS: BP 113/68
[2020-05-01 09:00] VITALS: BP 125/65
[2020-05-01 09:20] VITALS: BP 140/81
[2020-05-01 09:33] VITALS: BP 140/81
== END 2020-05-01 09:35 | disposition home or self-care (01) ==
LOC: M INFU 07:28
PROVIDERS: ATTEND Internal Medicine Gastroenterology
DX: K50.00 Crohn's disease of small intestine without complications (principal); Z88.2 Allergy status to sulfonamides; Z91.040 Latex allergy status

== ENCOUNTER → 2020-05-01 | Outpatient (CLI) | payer OTHER ==
[2020-05-01 09:17] LABS: BLOOD UREA NITROGEN 12 MG/DL (7-18); CALCIUM LEVEL 8.6 MG/DL (8.5-10.1); CARBON DIOXIDE LEVEL 25 MEQ/L (21-32); CHLORIDE LEVEL 107 MEQ/L (98-107); CHOLESTEROL LEVEL 156 MG/DL (<200); CHOLESTEROL RISK RATIO 2.736 (<5); CREATININE FOR GFR 1.02 MG/DL (0.55-1.30); GLOMERULAR FILTRATION RATE > 60.0 (>51); GLUCOSE, FASTING 98 MG/DL (70-100); HDL CHOLESTEROL 57 MG/DL (>40); LDL CHOLESTEROL 62 MG/DL (<100); NON-HDL-C 99 MG/DL; POTASSIUM SERUM 4.1 MEQ/L (3.5-5.1); SODIUM LEVEL 139 MEQ/L (136-145); TRIGLYCERIDES LEVEL 183 MG/DL (<150)
== END ==
LOC: M LAB 07:53
PROVIDERS: ATTEND Physician Assistant Medical
DX: R03.0 Elevated blood-pressure reading, without diagnosis of hypertension (principal)

== ENCOUNTER 2020-06-28 12:13 | Outpatient (CLI) | payer OTHER ==
[~2020-06-28] VITALS: Ht 157.5 cm; Wt 74.0 kg
[2020-06-28] MEDS ORDERED: inFLIXimab INJECTION 600 MG in NS 190 ML IV ONE (12:30)
[2020-06-28] MEDS ORDERED: diphenhydrAMINE 25MG PO PRIOR TO INFUSION PO ONE (12:30)
[2020-06-28] MEDS ORDERED: NS 1,000 ML IV SCH (12:30)
[2020-06-28] MEDS ORDERED: ACETAMINOPHEN 650MG PO PRIOR TO INFUSION PO ONE (12:30)
[2020-06-28 12:41] VITALS: BP 146/87
[2020-06-28 14:30] VITALS: BP 138/84
== END 2020-06-28 14:30 | disposition home or self-care (01) ==
LOC: M INFU 12:13
PROVIDERS: ATTEND Internal Medicine Gastroenterology
DX: K50.00 Crohn's disease of small intestine without complications (principal); Z88.2 Allergy status to sulfonamides; Z91.040 Latex allergy status

== ENCOUNTER 2020-09-14 08:26 | Outpatient (CLI) | payer OTHER ==
[~2020-09-14] VITALS: Ht 160 cm; Wt 74.0 kg
[2020-09-14 08:30] VITALS: BP 132/78
[2020-09-14] MEDS ORDERED: diphenhydrAMINE 25MG PO PRIOR TO INFUSION PO ONE (08:45)
[2020-09-14] MEDS ORDERED: NS 1,000 ML IV SCH (08:45)
[2020-09-14] MEDS ORDERED: inFLIXimab INJECTION 600 MG in NS 190 ML IV ONE (08:45)
[2020-09-14] MEDS ORDERED: ACETAMINOPHEN 650MG PO PRIOR TO INFUSION PO ONE (08:45)
[2020-09-14 09:00] VITALS: BP 132/78
[2020-09-14 09:33] VITALS: BP 114/66
[2020-09-14 10:15] VITALS: BP 113/69
[2020-09-14 10:30] VITALS: BP 112/70
== END 2020-09-14 10:30 | disposition home or self-care (01) ==
LOC: M INFU 08:26
PROVIDERS: ATTEND Internal Medicine Gastroenterology
DX: K50.00 Crohn's disease of small intestine without complications (principal); Z88.2 Allergy status to sulfonamides; Z91.040 Latex allergy status

== ENCOUNTER 2020-11-09 07:58 | Outpatient (CLI) | payer OTHER ==
[~2020-11-09] VITALS: Ht 157.5 cm; Wt 74.0 kg
[2020-11-09 07:55] VITALS: BP 139/77
[~2020-11-09 07:58] MED LIST changes: +ACETAMINOPHEN 650MG PO PRIOR TO INFUSION PO ONE; +NS 1,000 ML IV SCH; +diphenhydrAMINE 25MG PO PRIOR TO INFUSION PO ONE; +inFLIXimab INJECTION 600 MG in NS 190 ML IV ONE
[2020-11-09 09:10] VITALS: BP 137/71
== END 2020-11-09 09:20 | disposition home or self-care (01) ==
LOC: M INFU 07:58
PROVIDERS: ATTEND Internal Medicine Gastroenterology
DX: K50.00 Crohn's disease of small intestine without complications (principal); Z88.2 Allergy status to sulfonamides; Z91.040 Latex allergy status

== ENCOUNTER 2021-01-04 07:22 | Outpatient (CLI) | payer OTHER ==
[~2021-01-04] VITALS: Ht 157.5 cm; Wt 74.0 kg
[~2021-01-04 07:22] MED LIST changes: -ACETAMINOPHEN 650MG PO PRIOR TO INFUSION PO ONE; -NS 1,000 ML IV SCH; -diphenhydrAMINE 25MG PO PRIOR TO INFUSION PO ONE; -inFLIXimab INJECTION 600 MG in NS 190 ML IV ONE
[2021-01-04] MEDS ORDERED: diphenhydrAMINE 25MG PO PRIOR TO INFUSION PO ONE (07:30)
[2021-01-04] MEDS ORDERED: inFLIXimab INJECTION 600 MG in NS 190 ML IV ONE (07:30)
[2021-01-04] MEDS ORDERED: ACETAMINOPHEN 650MG PO PRIOR TO INFUSION PO ONE (07:30)
[2021-01-04] MEDS ORDERED: NS 1,000 ML IV SCH (07:30)
[2021-01-04 07:55] VITALS: BP 121/64
[2021-01-04 08:30] VITALS: BP 125/73
[2021-01-04 09:18] VITALS: BP 130/70
== END 2021-01-04 09:30 | disposition home or self-care (01) ==
LOC: M INFU 07:22
PROVIDERS: ATTEND Internal Medicine Gastroenterology
DX: K50.00 Crohn's disease of small intestine without complications (principal); Z88.2 Allergy status to sulfonamides; Z91.040 Latex allergy status

== ENCOUNTER 2021-03-06 07:46 | Outpatient (CLI) | payer OTHER ==
[~2021-03-06] VITALS: Ht 160 cm; Wt 74.0 kg
[~2021-03-06 07:46] MED LIST changes: +ACETAMINOPHEN 650MG PO PRIOR TO INFUSION PO ONE; +NS 1,000 ML IV SCH; +diphenhydrAMINE 25MG PO PRIOR TO INFUSION PO ONE; +inFLIXimab INJECTION 600 MG in NS 190 ML IV ONE
[2021-03-06 07:58] VITALS: BP 144/78
[2021-03-06 08:08] VITALS: BP 144/78
[2021-03-06 09:30] VITALS: BP 132/72
[2021-03-06 10:15] VITALS: BP 160/80
== END 2021-03-06 10:30 | disposition home or self-care (01) ==
LOC: M INFU 07:46
PROVIDERS: ATTEND Internal Medicine Gastroenterology
DX: K50.00 Crohn's disease of small intestine without complications (principal); Z88.2 Allergy status to sulfonamides; Z91.040 Latex allergy status

== ENCOUNTER → 2021-04-09 | Outpatient (CLI) | payer OTHER ==
[~2021-04-09] MED LIST changes: -ACETAMINOPHEN 650MG PO PRIOR TO INFUSION PO ONE; -NS 1,000 ML IV SCH; -diphenhydrAMINE 25MG PO PRIOR TO INFUSION PO ONE; -inFLIXimab INJECTION 600 MG in NS 190 ML IV ONE
--- NOTE | 2021-04-09 16:59 | REPMRS ---
Patient History The patient states she had a clinical breast exam in March 2021. Family history of breast cancer at age 50 or over in sister. Covid vaccines 09/2020 left arm. 09/2020 left arm. Patient states no breast complaints today. Patient has signed MRS History Sheet. Digital Woman Screen Mammo: April 09, 2021 - Exam #: [id number] Bilateral CC and MLO view(s) were taken. Technologist: RT Zeinab Prior study comparison: November 18, 2019, bilateral digital woman screen mammo performed at [facility]. April 02, 2017, digital woman screen mammo performed at [facility]. FINDINGS: The breast tissue is almost entirely fat. Screening. Digital screening (2D) mammography was performed bilaterally in the CC and MLO projections. Additionally, breast tomosynthesis (3D mammography) was performed bilaterally in the CC and MLO projections. Todays exam was compared to the prior exam/exams. By history, the patient has no complaints of a palpable breast abnormality or other significant breast complaints. The breasts are unchanged in size and shape. There are no maritza-soft tissue densities or spiculated masses. There is no internal architectural distortion. There are no suspicious maritza-calcific clusters. Skin thickening or nipple retraction is not present. IMPRESSION: BI-RADS Category 2- Benign Findings. There is no evidence of malignant alteration of the breasts. Followup examination recommended in one year. The Volpara volumetric breast density category is A, the breasts are almost entirely fatty. This mammogram was [facility],an FDA approved computer aided detection system for mammography. The lifetime Tyrer-Cuzick score is 22.8 % Due to the density of the breasts or Tyrer Cuzick score of 20% or greater, MRI/whole breast screening ultrasound is warranted. Negative x-ray reports should not delay surgical consultation if a dominant or clinically suspicious mass is present. Not all breast cancers can be identified by mammography. Therefore, we recommend that you continue to perform regular breast self-examination and physical examination and then promptly contact your physician of any concerns or changes. Adenosis and dense breasts may obscure an underlying neoplasm. Assessment: BI-RADS/ACR category 2 mammogram. Benign Findings. Recommendation Routine screening mammogram of both breasts in 1 year. Electronically Signed By: Georgi Hernández DO 04/09/21 [id number]
== END ==
LOC: M WHC 15:07
PROVIDERS: ATTEND Nurse Practitioner Women's Health
DX: Z12.31 Encounter for screening mammogram for malignant neoplasm of breast (principal); Z80.3 Family history of malignant neoplasm of breast

== ENCOUNTER → 2021-04-09 | Outpatient (REF) | payer OTHER | LOC: M SFHCWAGY 09:59 | PROVIDERS: ATTEND Nurse Practitioner Women's Health | DX: Z01.419 Encounter for gynecological examination (general) (routine) without abnormal findings (principal) | CPT/HCPCS: 87624; G0123 ==

== ENCOUNTER 2021-05-02 07:13 | Outpatient (CLI) | payer OTHER ==
[~2021-05-02] VITALS: Ht 160 cm; Wt 74.0 kg
[2021-05-02] MEDS ORDERED: ACETAMINOPHEN 650MG PO PRIOR TO INFUSION PO ONE (07:30)
[2021-05-02] MEDS ORDERED: diphenhydrAMINE 25MG PO PRIOR TO INFUSION PO ONE (07:30)
[2021-05-02] MEDS ORDERED: NS 1,000 ML IV SCH (07:30)
[2021-05-02] MEDS ORDERED: inFLIXimab INJECTION 600 MG in NS 190 ML IV ONE (07:30)
[2021-05-02 08:15] VITALS: BP 126/73
[2021-05-02 09:10] VITALS: BP 150/86
== END 2021-05-02 09:10 | disposition home or self-care (01) ==
LOC: M INFU 07:13
PROVIDERS: ATTEND Internal Medicine Gastroenterology
DX: K50.10 Crohn's disease of large intestine without complications (principal); Z88.2 Allergy status to sulfonamides; Z91.040 Latex allergy status

== ENCOUNTER 2021-06-27 07:25 | Outpatient (CLI) | payer OTHER ==
[~2021-06-27] VITALS: Ht 160 cm; Wt 74.0 kg
[2021-06-27] MEDS ORDERED: ACETAMINOPHEN 650MG PO PRIOR TO INFUSION PO ONE (07:30)
[2021-06-27] MEDS ORDERED: inFLIXimab INJECTION 600 MG in NS 190 ML IV ONE (07:30)
[2021-06-27] MEDS ORDERED: diphenhydrAMINE 25MG PO PRIOR TO INFUSION PO ONE (07:30)
[2021-06-27] MEDS ORDERED: NS 1,000 ML IV SCH (07:30)
[2021-06-27 07:54] VITALS: BP 140/85
[2021-06-27 08:14] LABS: BASO # 0.1 10^3/uL (0.0-0.2); BASO % 0.8 % (0.0-1.0); EOS # 0.1 10^3/uL (0.0-0.5); HEMATOCRIT 39.6 % (36.0-47.0); HEMOGLOBIN 13.3 g/dl (12.0-15.5); LYMPH # 1.8 10^3/uL (1.5-5.0); MEAN CORPUSCULAR HEMOGLOBIN 27.3 pg (27.0-33.0); MEAN CORPUSCULAR HGB CONC 33.6 g/dl (32.0-36.5); MEAN CORPUSCULAR VOLUME 81.3 fl (80.0-96.0); MONO # 0.8 10^3/uL (0.0-0.8); MONO % 13.1 % (2.0-8.0); NEUTROPHILS # 3.3 10^3/uL (1.5-8.5); NEUTROPHILS % 54.8 % (36.0-66.0); PLATELET COUNT, AUTOMATED 228 10^3/uL (150-450); RED BLOOD COUNT 4.87 10^6/uL (4.00-5.40); WHITE BLOOD COUNT 6.1 10^3/uL (4.0-10.0)
[2021-06-27 08:37] LABS: ALBUMIN 3.3 GM/DL (3.2-5.2); ALT/SGPT 28 U/L (12-78); BILIRUBIN,TOTAL 0.6 MG/DL (0.2-1.0); BLOOD UREA NITROGEN 10 MG/DL (7-18); C REACTIVE PROTEIN QUANTITATIV 0.58 MG/DL (0.00-0.30); CALCIUM LEVEL 8.6 MG/DL (8.5-10.1); CARBON DIOXIDE LEVEL 26 MEQ/L (21-32); CHLORIDE LEVEL 104 MEQ/L (98-107); CREATININE FOR GFR 0.95 MG/DL (0.55-1.30); GLOMERULAR FILTRATION RATE > 60.0 (>51); GLUCOSE, FASTING 95 MG/DL (70-100); POTASSIUM SERUM 3.8 MEQ/L (3.5-5.1); SODIUM LEVEL 139 MEQ/L (136-145); TOTAL PROTEIN 7.7 GM/DL (6.4-8.2)
[2021-06-27 09:00] VITALS: BP 131/81
[2021-06-27 10:00] VITALS: BP 164/77
[2021-06-27 10:45] LABS: FOLATE 12.8 NG/ML (>5.4); VITAMIN B12 LEVEL 693 PG/ML (247-911)
== END 2021-06-27 10:00 | disposition home or self-care (01) ==
LOC: M INFU 07:25
PROVIDERS: ATTEND Internal Medicine Gastroenterology
DX: K50.80 Crohn's disease of both small and large intestine without complications (principal); R12 Heartburn; Z88.2 Allergy status to sulfonamides; Z91.040 Latex allergy status

== ENCOUNTER → 2021-06-27 | Outpatient (CLI) | payer OTHER ==
[2021-06-27 08:37] LABS: BLOOD UREA NITROGEN 10 MG/DL (7-18); CALCIUM LEVEL 8.7 MG/DL (8.5-10.1); CARBON DIOXIDE LEVEL 26 MEQ/L (21-32); CHLORIDE LEVEL 105 MEQ/L (98-107); CHOLESTEROL LEVEL 161 MG/DL (<200); CHOLESTEROL RISK RATIO 2.267 (<5); CREATININE FOR GFR 0.98 MG/DL (0.55-1.30); GLOMERULAR FILTRATION RATE > 60.0 (>51); GLUCOSE, FASTING 94 MG/DL (70-100); HDL CHOLESTEROL 71 MG/DL (>40); LDL CHOLESTEROL 56 MG/DL (<100); NON-HDL-C 90 MG/DL; POTASSIUM SERUM 3.9 MEQ/L (3.5-5.1); SODIUM LEVEL 137 MEQ/L (136-145); TRIGLYCERIDES LEVEL 168 MG/DL (<150)
== END ==
LOC: M LAB 07:32
PROVIDERS: ATTEND Nurse Practitioner Family
DX: E78.1 Pure hyperglyceridemia (principal)

== ENCOUNTER 2021-08-22 07:29 | Outpatient (CLI) | payer OTHER ==
[~2021-08-22] VITALS: Ht 160 cm; Wt 74.0 kg
[2021-08-22] MEDS ORDERED: ACETAMINOPHEN 650MG PO PRIOR TO INFUSION PO ONE (07:30)
[2021-08-22] MEDS ORDERED: NS 1,000 ML IV SCH (07:30)
[2021-08-22] MEDS ORDERED: diphenhydrAMINE 25MG PO PRIOR TO INFUSION PO ONE (07:30)
[2021-08-22] MEDS ORDERED: inFLIXimab INJECTION 600 MG in NS 190 ML IV ONE (07:30)
[2021-08-22 08:55] VITALS: BP 137/80
[2021-08-22 09:45] VITALS: BP 169/90
== END 2021-08-22 09:45 | disposition home or self-care (01) ==
LOC: M INFU 07:29
PROVIDERS: ATTEND Internal Medicine Gastroenterology
DX: K50.00 Crohn's disease of small intestine without complications (principal); Z88.2 Allergy status to sulfonamides; Z91.040 Latex allergy status

== ENCOUNTER 2021-10-17 07:58 | Outpatient (CLI) | payer OTHER ==
[~2021-10-17] VITALS: Ht 165.1 cm; Wt 74.0 kg
[~2021-10-17 07:58] MED LIST changes: +ACETAMINOPHEN 650MG PO PRIOR TO INFUSION PO ONE; +NS 1,000 ML IV SCH; +diphenhydrAMINE 25MG PO PRIOR TO INFUSION PO ONE; +inFLIXimab INJECTION 600 MG in NS 190 ML IV ONE
[2021-10-17 08:15] VITALS: BP 156/86
[2021-10-17 08:34] VITALS: BP 156/86
[2021-10-17 08:46] VITALS: BP 132/81
[2021-10-17 09:35] VITALS: BP 163/80
== END 2021-10-17 09:40 | disposition home or self-care (01) ==
LOC: M INFU 07:58
PROVIDERS: ATTEND Internal Medicine Gastroenterology
DX: K50.00 Crohn's disease of small intestine without complications (principal)

== ENCOUNTER → 2021-11-29 | Outpatient (CLI) | payer OTHER ==
[~2021-11-29] MED LIST changes: -ACETAMINOPHEN 650MG PO PRIOR TO INFUSION PO ONE; -NS 1,000 ML IV SCH; -diphenhydrAMINE 25MG PO PRIOR TO INFUSION PO ONE; -inFLIXimab INJECTION 600 MG in NS 190 ML IV ONE
[2021-11-29 11:43] LABS: CHOLESTEROL RISK RATIO 3.052 (<5)
== END ==
LOC: M PLALAB 08:24
PROVIDERS: ATTEND Nurse Practitioner Family
DX: Z00.00 Encounter for general adult medical examination without abnormal findings (principal)

== ENCOUNTER 2021-12-12 07:30 | Outpatient (CLI) | payer OTHER ==
[~2021-12-12] VITALS: Ht 165.1 cm; Wt 74.0 kg
[~2021-12-12 07:30] MED LIST changes: +ACETAMINOPHEN 650MG PO PRIOR TO INFUSION PO ONE; +NS 1,000 ML IV SCH; +diphenhydrAMINE 25MG PO PRIOR TO INFUSION PO ONE; +inFLIXimab INJECTION 600 MG in NS 190 ML IV ONE
[2021-12-12 07:35] VITALS: BP 130/84
[2021-12-12 08:21] VITALS: BP 117/68
[2021-12-12 09:13] VITALS: BP 129/89
== END 2021-12-12 09:10 | disposition home or self-care (01) ==
LOC: M INFU 07:30
PROVIDERS: ATTEND Internal Medicine Gastroenterology
DX: K50.00 Crohn's disease of small intestine without complications (principal); Z88.2 Allergy status to sulfonamides; Z91.040 Latex allergy status

== ENCOUNTER → 2022-02-04 | Outpatient (REF) | payer OTHER ==
[~2022-02-04] MED LIST changes: -ACETAMINOPHEN 650MG PO PRIOR TO INFUSION PO ONE; -NS 1,000 ML IV SCH; -diphenhydrAMINE 25MG PO PRIOR TO INFUSION PO ONE; -inFLIXimab INJECTION 600 MG in NS 190 ML IV ONE
== END ==
LOC: M LAB REF 16:15
PROVIDERS: ATTEND Physician Assistant
DX: J02.9 Acute pharyngitis, unspecified (principal); R50.9 Fever, unspecified; Z20.828 Contact with and (suspected) exposure to other viral communicable diseases

== ENCOUNTER 2022-02-19 13:28 | Outpatient (CLI) | payer OTHER ==
[~2022-02-19] VITALS: Ht 165.1 cm; Wt 74.0 kg
[2022-02-19 13:30] VITALS: BP 143/81
[2022-02-19] MEDS ORDERED: ACETAMINOPHEN 650MG PO PRIOR TO INFUSION PO ONE (13:30)
[2022-02-19] MEDS ORDERED: inFLIXimab INJECTION 600 MG in NS 190 ML IV ONE (13:30)
[2022-02-19] MEDS ORDERED: NS 1,000 ML IV SCH (13:30)
[2022-02-19] MEDS ORDERED: diphenhydrAMINE 25MG PO PRIOR TO INFUSION PO ONE (13:30)
[2022-02-19 15:15] VITALS: BP 145/88
== END 2022-02-19 15:15 | disposition home or self-care (01) ==
LOC: M INFU 13:28
PROVIDERS: ATTEND Internal Medicine Gastroenterology
DX: K50.00 Crohn's disease of small intestine without complications (principal); Z88.2 Allergy status to sulfonamides

== ENCOUNTER 2022-04-23 08:10 | Outpatient (CLI) | payer OTHER ==
[~2022-04-23] VITALS: Ht 165.1 cm; Wt 74.0 kg
[2022-04-23 08:10] VITALS: BP 134/73
[~2022-04-23 08:10] MED LIST changes: +ACETAMINOPHEN 650MG PO PRIOR TO INFUSION PO ONE; +NS 1,000 ML IV SCH; +diphenhydrAMINE 25MG PO PRIOR TO INFUSION PO ONE; +inFLIXimab INJECTION 600 MG in NS 190 ML IV ONE
[2022-04-23 10:30] VITALS: BP 148/81
== END 2022-04-23 10:30 | disposition home or self-care (01) ==
LOC: M INFU 08:10
PROVIDERS: ATTEND Internal Medicine Gastroenterology
DX: K50.00 Crohn's disease of small intestine without complications (principal); Z88.2 Allergy status to sulfonamides; Z91.040 Latex allergy status

== ENCOUNTER → 2022-04-30 | Outpatient (REF) | payer OTHER ==
[~2022-04-30] MED LIST changes: -ACETAMINOPHEN 650MG PO PRIOR TO INFUSION PO ONE; -NS 1,000 ML IV SCH; -diphenhydrAMINE 25MG PO PRIOR TO INFUSION PO ONE; -inFLIXimab INJECTION 600 MG in NS 190 ML IV ONE
[2022-04-30 21:46] LABS: APPEARANCE, URINE MANUAL CLEAR (CLEAR); BILIRUBIN, URINE MANUAL OBSCURED (NEGATIVE); BLOOD URINE MANUAL OBSCURED (NEGATIVE); COLOR, URINE MANUAL ORANGE (YELLOW); GLUCOSE, URINE (UA) MANUAL OBSCURED mg/dL (NEGATIVE); KETONE, URINE MANUAL OBSCURED mg/dL (NEGATIVE); LEUKOCYTE ESTERASE, URINE MAN OBSCURED (NEGATIVE); NITRITE, URINE MANUAL OBSCURED (NEGATIVE); PH,URINE MAN OBSCURED UNITS (5.0 - 7.0); PROTEIN, URINE MANUAL OBSCURED mg/dL (NEGATIVE); UROBILINOGEN, URINE MANUAL OBSCURED mg/dl (NORMAL)
[2022-04-30 21:47] LABS: SPECIFIC GRAVITY,URINE MANUAL 1.001 (1.002-1.035)
[2022-04-30 22:08] LABS: RBC, URINE 0-1 /hpf (0-3); SQUAMOUS EPITHELIAL CELL URINE SMALL AMOUNT /hpf (SMALL AMT); WBC, URINE 0-1 /hpf (0-3)
[2022-04-30 22:09] LABS: BACTERIA, URINE NONE SEEN
== END ==
LOC: M LAB REF 21:35
PROVIDERS: ATTEND Physician Assistant Medical
DX: N39.0 Urinary tract infection, site not specified (principal)

== ENCOUNTER → 2022-06-18 | Outpatient (CLI) | payer OTHER ==
[~2022-06-18] MED LIST changes: +ACETAMINOPHEN 650MG PO PRIOR TO INFUSION PO ONE; +NS 1,000 ML IV SCH; +diphenhydrAMINE 25MG PO PRIOR TO INFUSION PO ONE; +inFLIXimab INJECTION 600 MG in NS 190 ML IV ONE
[2022-06-18 08:00] VITALS: BP 149/99
[2022-06-18 09:13] VITALS: BP 149/78
[2022-06-18 09:30] VITALS: BP 117/72
[2022-06-18 10:21] VITALS: BP 149/86
== END ==
LOC: M INFU 07:55
PROVIDERS: ATTEND Internal Medicine Gastroenterology
DX: K50.00 Crohn's disease of small intestine without complications (principal); Z88.2 Allergy status to sulfonamides

== ENCOUNTER 2022-08-13 07:57 | Outpatient (CLI) | payer OTHER ==
[~2022-08-13 07:57] MED LIST changes: -ACETAMINOPHEN 650MG PO PRIOR TO INFUSION PO ONE; -NS 1,000 ML IV SCH; -diphenhydrAMINE 25MG PO PRIOR TO INFUSION PO ONE; -inFLIXimab INJECTION 600 MG in NS 190 ML IV ONE
[2022-08-13] MEDS ORDERED: NS 1,000 ML IV SCH (08:00)
[2022-08-13] MEDS ORDERED: ACETAMINOPHEN 650MG PO PRIOR TO INFUSION PO ONE (08:00)
[2022-08-13] MEDS ORDERED: inFLIXimab INJECTION 600 MG in NS 190 ML IV ONE (08:00)
[2022-08-13] MEDS ORDERED: diphenhydrAMINE 25MG PO PRIOR TO INFUSION PO ONE (08:00)
[2022-08-13 08:10] VITALS: BP 139/69
[2022-08-13 09:20] VITALS: BP 129/77
[2022-08-13 10:15] VITALS: BP 158/88
== END 2022-08-13 10:15 | disposition home or self-care (01) ==
LOC: M INFU 07:57
PROVIDERS: ATTEND Internal Medicine Gastroenterology
DX: K50.00 Crohn's disease of small intestine without complications (principal); Z88.2 Allergy status to sulfonamides

== ENCOUNTER → 2022-09-05 | Outpatient (CLI) | payer OTHER | LOC: M WHC 09:49 | PROVIDERS: ATTEND Nurse Practitioner Family | DX: Z12.31 Encounter for screening mammogram for malignant neoplasm of breast (principal) ==

== ENCOUNTER → 2022-09-05 | Outpatient (REF) | payer OTHER | LOC: M PLALAB 16:19 | PROVIDERS: ATTEND Nurse Practitioner Family | DX: Z12.4 Encounter for screening for malignant neoplasm of cervix (principal) | CPT/HCPCS: 87624; G0123 ==

== ENCOUNTER 2022-10-08 07:45 | Outpatient (CLI) | payer OTHER ==
[2022-10-08 07:45] VITALS: BP 133/84
[2022-10-08] MEDS ORDERED: ACETAMINOPHEN 650MG PO PRIOR TO INFUSION PO ONE (08:00)
[2022-10-08] MEDS ORDERED: NS 1,000 ML IV SCH (08:00)
[2022-10-08] MEDS ORDERED: inFLIXimab INJECTION 600 MG in NS 190 ML IV ONE (08:00)
[2022-10-08] MEDS ORDERED: diphenhydrAMINE 25MG PO PRIOR TO INFUSION PO ONE (08:00)
[2022-10-08 09:20] VITALS: BP 142/83
[2022-10-08 10:15] VITALS: BP 173/92
== END 2022-10-08 10:15 ==
LOC: M INFU 07:45
PROVIDERS: ATTEND Internal Medicine Gastroenterology
DX: K50.00 Crohn's disease of small intestine without complications (principal); Z88.2 Allergy status to sulfonamides

== ENCOUNTER → 2022-10-28 | Outpatient (CLI) | payer OTHER ==
[2022-10-28 15:00] LABS: BASO # 0.1 10^3/uL (0.0-0.2); BASO % 0.9 % (0.0-1.0); EOS # 0.1 10^3/uL (0.0-0.5); EOS % 1.5 % (0.0-3.0); HEMATOCRIT 42.1 % (36.0-47.0); HEMOGLOBIN 13.9 g/dl (12.0-15.5); LYMPH # 2.7 10^3/uL (1.5-5.0); LYMPH % 31.9 % (24.0-44.0); MEAN CORPUSCULAR HEMOGLOBIN 29.1 pg (27.0-33.0); MEAN CORPUSCULAR VOLUME 88.3 fl (80.0-96.0); MONO # 0.7 10^3/uL (0.0-0.8); NEUTROPHILS # 4.9 10^3/uL (1.5-8.5); NEUTROPHILS % 57.3 % (36.0-66.0); PLATELET COUNT, AUTOMATED 249 10^3/uL (150-450); RED BLOOD COUNT 4.77 10^6/uL (4.00-5.40); WHITE BLOOD COUNT 8.5 10^3/uL (4.0-10.0)
[2022-10-28 15:28] LABS: ALBUMIN 3.8 G/DL (3.2-5.2); ALKALINE PHOSPHATASE 81 U/L (46-116); ALT/SGPT 36 U/L (7.0-40); AST/SGOT 26 U/L (<34); BILIRUBIN,TOTAL 0.9 MG/DL (0.3-1.2); BLOOD UREA NITROGEN 11 MG/DL (9-23); CALCIUM LEVEL 9.4 MG/DL (8.5-10.1); CARBON DIOXIDE LEVEL 27 MMOL/L (20-31); CHLORIDE LEVEL 106 MMOL/L (98-107); CHOLESTEROL LEVEL 203 MG/DL (<200); CHOLESTEROL RISK RATIO 2.46 (<5); CREATININE FOR GFR 0.99 MG/DL (0.55-1.30); GLOMERULAR FILTRATION RATE > 60.0 (>51); GLUCOSE, FASTING 105 MG/DL (60-100); HDL CHOLESTEROL 82.5 MG/DL (>40); LDL CHOLESTEROL 79.9 MG/DL (<100); NON-HDL-C 120.5 MG/DL; POTASSIUM SERUM 4.4 MMOL/L (3.5-5.1); SODIUM LEVEL 136 MMOL/L (136-145); TOTAL PROTEIN 7.7 G/DL (5.7-8.2); TRIGLYCERIDES LEVEL 203 MG/DL (<150)
== END ==
LOC: M PLALAB 09:27
PROVIDERS: ATTEND Nurse Practitioner Family
DX: R00.0 Tachycardia, unspecified (principal)

== ENCOUNTER 2022-12-03 07:47 | Outpatient (CLI) | payer OTHER ==
[~2022-12-03] VITALS: Ht 165.1 cm; Wt 74.0 kg
[2022-12-03] MEDS ORDERED: diphenhydrAMINE 25MG PO PRIOR TO INFUSION PO ONE (08:00)
[2022-12-03] MEDS ORDERED: ACETAMINOPHEN 650MG PO PRIOR TO INFUSION PO ONE (08:00)
[2022-12-03] MEDS ORDERED: NS 1,000 ML IV SCH (08:00)
[2022-12-03] MEDS ORDERED: inFLIXimab INJECTION 600 MG in NS 190 ML IV ONE (08:00)
[2022-12-03 08:07] VITALS: BP 155/94; TEMP 97.9; O2SAT 97
[2022-12-03 09:15] VITALS: BP 122/73; TEMP 97.8; O2SAT 98
[2022-12-03 10:01] VITALS: BP 151/80; O2SAT 98
== END 2022-12-03 10:10 | disposition home or self-care (01) ==
LOC: M INFU 07:47
PROVIDERS: ATTEND Internal Medicine Gastroenterology
DX: K50.00 Crohn's disease of small intestine without complications (principal); Z88.2 Allergy status to sulfonamides

== ENCOUNTER 2023-01-28 08:00 | Outpatient (CLI) | payer OTHER ==
[~2023-01-28] VITALS: Ht 160 cm; Wt 76.2 kg
[2023-01-28 08:15] VITALS: BP 127/67; TEMP 97.9; O2SAT 97
[2023-01-28] MEDS ORDERED: diphenhydrAMINE 25MG PO PRIOR TO INFUSION PO ONE (08:30)
[2023-01-28] MEDS ORDERED: ACETAMINOPHEN 650MG PO PRIOR TO INFUSION PO ONE (08:30)
[2023-01-28] MEDS ORDERED: inFLIXimab INJECTION 600 MG in NS 190 ML IV ONE (08:30)
[2023-01-28] MEDS ORDERED: NS 1,000 ML IV SCH (08:30)
[2023-01-28 09:09] VITALS: BP 130/70; TEMP 97.6; O2SAT 97
[2023-01-28 09:52] VITALS: BP 138/84; TEMP 98; O2SAT 97
== END 2023-01-28 09:55 | disposition home or self-care (01) ==
LOC: M INFU 08:00
PROVIDERS: ATTEND Internal Medicine Gastroenterology
DX: K50.00 Crohn's disease of small intestine without complications (principal); Z88.2 Allergy status to sulfonamides

== ENCOUNTER 2023-03-25 07:40 | Outpatient (CLI) | payer OTHER ==
[~2023-03-25] VITALS: Ht 160 cm; Wt 75.0 kg
[2023-03-25 07:30] VITALS: BP 134/74; O2SAT 98
[2023-03-25] MEDS ORDERED: inFLIXimab INJECTION 600 MG in NS 190 ML IV ONE (07:55)
[2023-03-25] MEDS ORDERED: diphenhydrAMINE 25MG PO PRIOR TO INFUSION PO ONE (07:55)
[2023-03-25] MEDS ORDERED: ACETAMINOPHEN 650MG PO PRIOR TO INFUSION PO ONE (07:55)
[2023-03-25] MEDS ORDERED: NS 1,000 ML IV SCH (07:55)
[2023-03-25 09:00] VITALS: BP 115/74; O2SAT 99
[2023-03-25 09:53] VITALS: BP 141/82; O2SAT 99
[2023-03-25 09:55] VITALS: BP 141/82; TEMP 36.1; O2SAT 99
== END 2023-03-25 09:55 ==
LOC: M INFU 07:40
PROVIDERS: ATTEND Internal Medicine Gastroenterology
DX: K50.00 Crohn's disease of small intestine without complications (principal); Z88.2 Allergy status to sulfonamides

== ENCOUNTER 2023-05-20 07:30 | Outpatient (CLI) | payer OTHER ==
[~2023-05-20] VITALS: Ht 157.5 cm; Wt 71.6 kg
[2023-05-20 07:30] VITALS: BP 137/80; O2SAT 97
[2023-05-20] MEDS ORDERED: diphenhydrAMINE 25MG PO PRIOR TO INFUSION PO ONE (07:55)
[2023-05-20] MEDS ORDERED: ACETAMINOPHEN 650MG PO PRIOR TO INFUSION PO ONE (07:55)
[2023-05-20] MEDS ORDERED: inFLIXimab INJECTION 600 MG in NS 190 ML IV ONE (07:55)
[2023-05-20] MEDS ORDERED: NS 1,000 ML IV SCH (07:55)
[2023-05-20 09:15] VITALS: BP 129/72; O2SAT 99
[2023-05-20 09:52] VITALS: BP 170/87; O2SAT 100
[2023-05-20 09:54] VITALS: BP 170/87; TEMP 36.1; O2SAT 100
== END 2023-05-20 09:55 | disposition home or self-care (01) ==
LOC: M INFU 07:30
PROVIDERS: ATTEND Internal Medicine Gastroenterology
DX: K50.00 Crohn's disease of small intestine without complications (principal); Z88.2 Allergy status to sulfonamides

== ENCOUNTER 2023-05-26 21:58 | Emergency (ER) | payer OTHER ==
[~2023-05-26] VITALS: Ht 160 cm; Wt 74.8 kg
[2023-05-26 23:30] LABS: BLOOD UREA NITROGEN 10 MG/DL (9-23); CARBON DIOXIDE LEVEL 23 MMOL/L (20-31); CHLORIDE LEVEL 99 MMOL/L (98-107); CK-MB VALUE MASS < 1.0 NG/ML (<3.6); CREATININE FOR GFR 0.76 MG/DL (0.55-1.30); GLOMERULAR FILTRATION RATE > 60.0 (>51); GLUCOSE, FASTING 160 MG/DL (60-100); POTASSIUM SERUM 4.2 MMOL/L (3.5-5.1); SODIUM LEVEL 132 MMOL/L (136-145)
[2023-05-26 23:35] LABS: CPK CREATINE PHOSPHOKINASE 40 U/L (34-145)
[2023-05-27 00:32] LABS: BASO # 0.1 10^3/uL (0.0-0.2); EOS # 0.2 10^3/uL (0.0-0.5); EOS % 1.9 % (0.0-3.0); HEMATOCRIT 40.3 % (36.0-47.0); HEMOGLOBIN 13.6 g/dl (12.0-15.5); LYMPH # 0.8 10^3/uL (1.5-5.0); LYMPH % 9.1 % (24.0-44.0); MEAN CORPUSCULAR HEMOGLOBIN 28.2 pg (27.0-33.0); MEAN CORPUSCULAR HGB CONC 33.7 g/dl (32.0-36.5); MEAN CORPUSCULAR VOLUME 83.4 fl (80.0-96.0); MONO # 0.7 10^3/uL (0.0-0.8); MONO % 7.8 % (2.0-8.0); NEUTROPHILS # 6.7 10^3/uL (1.5-8.5); PLATELET COUNT, AUTOMATED 213 10^3/uL (150-450); RED BLOOD COUNT 4.83 10^6/uL (4.00-5.40); WHITE BLOOD COUNT 8.3 10^3/uL (4.0-10.0)
[2023-05-27 00:35] LABS: CK-MB VALUE MASS < 1.0 NG/ML (<3.6)
[2023-05-27 00:37] LABS: CPK CREATINE PHOSPHOKINASE 31 U/L (34-145); MB/CK RELATIVE INDEX 3.22 (< OR =4)
[2023-05-27] MEDS ORDERED: KETOROLAC 30 MG/ML 1ML VIAL IV ONE (03:25)
[2023-05-27] MEDS ORDERED: ONDANSETRON 4MG 2ML VIAL IV ONE (04:15)
[2023-05-27] MEDS ORDERED: ONDANSETRON 4MG 2ML VIAL As Ordered ONE (04:16)
[2023-05-27] MEDS ORDERED: MORPHINE 4 MG/ML 1ML VIAL As Ordered ONE (04:20)
[2023-05-27] MEDS: MORPHINE 4 MG/ML 1ML VIAL IV PRN ×2 (04:24→04:50)
[2023-05-27] MEDS ORDERED: PERCOCET 5MG/325MG TAB PO ONE (06:30)
[2023-05-27 06:34] VITALS: BP 147/65; TEMP 98; O2SAT 97
[2023-05-27] MEDS ORDERED: PERC5TAB12 PO (06:36)
[2023-05-27] MEDS ORDERED: NAPR-837 PO (06:36)
== END 2023-05-27 06:43 | disposition home or self-care (01) ==
LOC: M ED 21:58
DX: M54.9 Dorsalgia, unspecified (principal); I51.9 Heart disease, unspecified; Z87.19 Personal history of other diseases of the digestive system; Z87.442 Personal history of urinary calculi; Z79.899 Other long term (current) drug therapy; Z88.2 Allergy status to sulfonamides; Z91.040 Latex allergy status
CPT/HCPCS: 71045; 74176; 80048; 81001; 82550; 82553; 84484; 85025; 93005; 93041; 94760; 96374; 96375; 96376; 99284; J1885; J2405

== ENCOUNTER → 2023-07-15 | Outpatient (CLI) | payer OTHER ==
[~2023-07-15] VITALS: Ht 160 cm; Wt 75.0 kg
[~2023-07-15] MED LIST changes: +ACETAMINOPHEN 650MG PO PRIOR TO INFUSION PO ONE; +NAPR-837 PO; +NS 1,000 ML IV SCH; +diphenhydrAMINE 25MG PO PRIOR TO INFUSION PO ONE; +inFLIXimab INJECTION 600 MG in NS 190 ML IV ONE
[2023-07-15 07:40] VITALS: BP 128/72; O2SAT 100
[2023-07-15 08:48] VITALS: BP 122/70; TEMP 97; O2SAT 100
[2023-07-15 09:30] VITALS: BP 143/79; TEMP 97.6; O2SAT 99
== END ==
LOC: M INFU 07:29
PROVIDERS: ATTEND Internal Medicine Gastroenterology
DX: K50.00 Crohn's disease of small intestine without complications (principal); Z88.2 Allergy status to sulfonamides

== ENCOUNTER 2023-09-09 07:45 | Outpatient (CLI) | payer OTHER ==
[~2023-09-09] VITALS: Ht 160 cm; Wt 74.0 kg
[2023-09-09 07:45] VITALS: BP 146/74; O2SAT 99
[~2023-09-09 07:45] MED LIST changes: -diphenhydrAMINE 25MG PO PRIOR TO INFUSION PO ONE; -inFLIXimab INJECTION 600 MG in NS 190 ML IV ONE
[2023-09-09] MEDS: diphenhydrAMINE 25MG PO PRIOR TO INFUSION PO ONE (07:58)
[2023-09-09] MEDS: inFLIXimab INJECTION 600 MG in NS 190 ML IV ONE (08:30)
[2023-09-09 08:50] VITALS: BP 156/86; O2SAT 99
[2023-09-09 09:30] VITALS: BP 124/81; TEMP 36.7; O2SAT 96
== END 2023-09-09 09:30 ==
LOC: M INFU 07:45
PROVIDERS: ATTEND Internal Medicine Gastroenterology
DX: K50.919 Crohn's disease, unspecified, with unspecified complications (principal); Z88.2 Allergy status to sulfonamides; Z91.040 Latex allergy status

== ENCOUNTER 2023-11-04 07:30 | Outpatient (CLI) | payer OTHER ==
[~2023-11-04] VITALS: Ht 160 cm; Wt 74.0 kg
[~2023-11-04 07:30] MED LIST changes: +PROP10TA56 PO
[2023-11-04 07:45] VITALS: BP_SYST 131; O2SAT 96
[2023-11-04] MEDS: diphenhydrAMINE 25MG PO PRIOR TO INFUSION PO ONE (07:48)
[2023-11-04] MEDS: inFLIXimab INJECTION 600 MG in NS 190 ML IV ONE (08:15)
[2023-11-04 08:40] VITALS: BP 132/78; O2SAT 99
[2023-11-04 09:29] VITALS: BP 138/84; O2SAT 98
[2023-11-04 09:30] VITALS: BP 138/84; TEMP 36.7; O2SAT 98
== END 2023-11-04 09:30 | disposition home or self-care (01) ==
LOC: M INFU 07:30
PROVIDERS: ATTEND Internal Medicine Gastroenterology
DX: K50.00 Crohn's disease of small intestine without complications (principal); Z88.2 Allergy status to sulfonamides

== ENCOUNTER 2023-11-09 09:39 | Day surgery (SDC) | payer OTHER ==
[~2023-11-09] VITALS: Ht 160 cm; Wt 72.5 kg
[~2023-11-09 09:39] MED LIST changes: -ACETAMINOPHEN 650MG PO PRIOR TO INFUSION PO ONE; -NS 1,000 ML IV SCH
[2023-11-09] MEDS: NS 1,000 ML IV ONE (09:58)
[2023-11-09] MEDS ORDERED: LIDOCAINE 2% 100MG/5ML SDV (FOR ANES.) As Ordered ONE (10:56)
[2023-11-09] MEDS ORDERED: propofoL 200 MG/20 ML VIAL As Ordered ONE (10:56)
[2023-11-09] MEDS ORDERED: fentaNYL 100 MCG/2 ML INJECTION As Ordered ONE (10:57)
[2023-11-09 11:40] VITALS: TEMP 96.7
[2023-11-09 11:55] VITALS: BP 127/75; O2SAT 100
== END 2023-11-09 12:09 | disposition home or self-care (01) ==
LOC: M OPP 09:39
PROVIDERS: ATTEND Internal Medicine Gastroenterology
DX: K50.80 Crohn's disease of both small and large intestine without complications (principal); K64.0 First degree hemorrhoids; Z98.0 Intestinal bypass and anastomosis status; K31.89 Other diseases of stomach and duodenum; R12 Heartburn; Z79.899 Other long term (current) drug therapy; Z88.2 Allergy status to sulfonamides; Z90.49 Acquired absence of other specified parts of digestive tract
CPT/HCPCS: 43239; 45380; 88305; J3010

== ENCOUNTER 2023-12-30 07:33 | Outpatient (CLI) | payer OTHER ==
[~2023-12-30] VITALS: Ht 160 cm; Wt 74.5 kg
[~2023-12-30 07:33] MED LIST changes: +NS 1,000 ML IV SCH
[2023-12-30 07:35] VITALS: BP 115/72; O2SAT 96
[2023-12-30] MEDS: ACETAMINOPHEN 650MG PO PRIOR TO INFUSION PO ONE (07:47)
[2023-12-30] MEDS: diphenhydrAMINE 25MG PO PRIOR TO INFUSION PO ONE (07:47)
[2023-12-30] MEDS: inFLIXimab INJECTION 600 MG in NS 190 ML IV ONE (08:40)
[2023-12-30 09:40] VITALS: BP 169/80; O2SAT 98
== END 2023-12-30 09:50 ==
LOC: M INFU 07:33
PROVIDERS: ATTEND Internal Medicine Gastroenterology
DX: K50.00 Crohn's disease of small intestine without complications (principal); Z88.2 Allergy status to sulfonamides

== ENCOUNTER 2024-02-24 07:40 | Outpatient (CLI) | payer OTHER ==
[~2024-02-24] VITALS: Ht 160 cm; Wt 73.6 kg
[2024-02-24 07:40] VITALS: BP 136/71; O2SAT 96
[~2024-02-24 07:40] MED LIST changes: +ACETAMINOPHEN 650MG PO PRIOR TO INFUSION PO ONE
[2024-02-24] MEDS: diphenhydrAMINE 25MG PO PRIOR TO INFUSION PO ONE (07:57)
[2024-02-24] MEDS: inFLIXimab INJECTION 600 MG in NS 190 ML IV ONE (08:38)
[2024-02-24 09:50] VITALS: BP 128/74; O2SAT 95
== END 2024-02-24 09:50 ==
LOC: M INFU 07:40
PROVIDERS: ATTEND Internal Medicine Gastroenterology
DX: K50.00 Crohn's disease of small intestine without complications (principal); Z88.2 Allergy status to sulfonamides

== ENCOUNTER 2024-04-20 08:23 | Outpatient (CLI) | payer OTHER ==
[~2024-04-20] VITALS: Ht 160 cm; Wt 74.0 kg
[~2024-04-20 08:23] MED LIST changes: -ACETAMINOPHEN 650MG PO PRIOR TO INFUSION PO ONE; -NS 1,000 ML IV SCH
[2024-04-20 08:30] VITALS: BP 135/71; O2SAT 96
[2024-04-20] MEDS ORDERED: NS 1,000 ML IV SCH (08:30)
[2024-04-20] MEDS: diphenhydrAMINE 25MG PO PRIOR TO INFUSION PO ONE (08:47)
[2024-04-20] MEDS: ACETAMINOPHEN 650MG PO PRIOR TO INFUSION PO ONE (08:48)
[2024-04-20] MEDS: inFLIXimab INJECTION 600 MG in NS 190 ML IV ONE (09:20)
[2024-04-20 10:20] VITALS: BP 141/80; O2SAT 97
== END 2024-04-20 10:30 ==
LOC: M INFU 08:23
PROVIDERS: ATTEND Internal Medicine Gastroenterology
DX: K50.00 Crohn's disease of small intestine without complications (principal); Z88.2 Allergy status to sulfonamides

== ENCOUNTER 2024-06-27 11:27 | Outpatient (CLI) | payer OTHER ==
[~2024-06-27] VITALS: Ht 160 cm; Wt 72.7 kg
[2024-06-27] MEDS ORDERED: NS (Normal Saline) 0.9% 1,000 ML IV SCH (11:30)
[2024-06-27] MEDS: ACETAMINOPHEN 650MG PO PRIOR TO INFUSION PO ONE (11:30)
[2024-06-27 11:51] VITALS: BP 135/74; O2SAT 98
[2024-06-27] MEDS: diphenhydrAMINE 25MG PO PRIOR TO INFUSION PO ONE (11:54)
[2024-06-27] MEDS: inFLIXimab INJECTION 600 MG in NS 190 ML IV ONE (12:57)
[2024-06-27 13:15] VITALS: BP 133/72; O2SAT 100
[2024-06-27 13:45] VITALS: BP 154/96; O2SAT 97
== END 2024-06-27 14:00 ==
LOC: M INFU 11:27
PROVIDERS: ATTEND Internal Medicine Gastroenterology
DX: K50.00 Crohn's disease of small intestine without complications (principal); Z88.2 Allergy status to sulfonamides

== ENCOUNTER → 2024-08-08 | Outpatient (CLI) | payer OTHER ==
[2024-08-08 14:28] LABS: HEMOGLOBIN A1c 5.2 % (4.0-6.0)
[2024-08-08 14:42] LABS: ALBUMIN 3.5 G/DL (3.2-5.2); ALKALINE PHOSPHATASE 67 U/L (35-104); ALT/SGPT 28 U/L (7.0-40); AST/SGOT 22 U/L (<34); BILIRUBIN,TOTAL 0.6 MG/DL (0.3-1.2); BLOOD UREA NITROGEN 14 MG/DL (9-23); CALCIUM LEVEL 9.7 MG/DL (8.5-10.1); CARBON DIOXIDE LEVEL 26 MMOL/L (20-31); CHLORIDE LEVEL 104 MMOL/L (98-107); CHOLESTEROL LEVEL 171 MG/DL (<200); CHOLESTEROL RISK RATIO 2.11 (<5); CREATININE FOR GFR 0.96 MG/DL (0.55-1.30); GLOMERULAR FILTRATION RATE > 60.0 (>51); GLUCOSE, FASTING 109 MG/DL (60-100); LDL CHOLESTEROL 57.6 MG/DL (<100); POTASSIUM SERUM 5.1 MMOL/L (3.5-5.1); SODIUM LEVEL 140 MMOL/L (136-145); TOTAL PROTEIN 7.9 G/DL (5.7-8.2); TRIGLYCERIDES LEVEL 162 MG/DL (<150)
== END ==
LOC: M PLALAB 09:40
PROVIDERS: ATTEND Registered Nurse
DX: E78.1 Pure hyperglyceridemia (principal)

== ENCOUNTER 2024-08-22 10:00 | Outpatient (CLI) | payer OTHER ==
[~2024-08-22] VITALS: Ht 160 cm; Wt 72.7 kg
[2024-08-22 10:00] VITALS: BP 119/56; O2SAT 98
[~2024-08-22 10:00] MED LIST changes: +NS (Normal Saline) 0.9% 1,000 ML IV SCH
[2024-08-22] MEDS: ACETAMINOPHEN 650MG PO PRIOR TO INFUSION PO ONE (10:00)
[2024-08-22] MEDS: diphenhydrAMINE 25MG CAP PO ONE (10:12)
[2024-08-22] MEDS: inFLIXimab INJECTION 600 MG in NS 190 ML IV ONE (11:21)
[2024-08-22 11:49] VITALS: BP 134/86; O2SAT 98
[2024-08-22 12:30] VITALS: BP 142/82; O2SAT 97
== END 2024-08-22 12:30 ==
LOC: M INFU 10:00
PROVIDERS: ATTEND Internal Medicine Gastroenterology
DX: K50.00 Crohn's disease of small intestine without complications (principal); Z88.2 Allergy status to sulfonamides

== ENCOUNTER 2024-10-17 07:53 | Outpatient (CLI) | payer OTHER ==
[~2024-10-17] VITALS: Ht 160 cm; Wt 75.0 kg
[2024-10-17] MEDS ORDERED: ACETAMINOPHEN 650MG PO PRIOR TO INFUSION PO ONE (08:00)
[2024-10-17] MEDS: diphenhydrAMINE 25MG PO PRIOR TO INFUSION PO ONE (08:09)
[2024-10-17 08:15] VITALS: BP 161/77; O2SAT 95
[2024-10-17] MEDS: inFLIXimab INJECTION 600 MG in NS 190 ML IV ONE (09:01)
[2024-10-17 10:05] VITALS: BP 121/78; O2SAT 100
== END 2024-10-17 10:05 | disposition home or self-care (01) ==
LOC: M INFU 07:53
PROVIDERS: ATTEND Internal Medicine Gastroenterology
DX: K50.90 Crohn's disease, unspecified, without complications (principal); Z88.2 Allergy status to sulfonamides

== ENCOUNTER 2025-02-08 08:59 | Outpatient (CLI) | payer OTHER ==
[~2025-02-08] VITALS: Ht 160 cm; Wt 75.0 kg
[~2025-02-08 08:59] MED LIST changes: -NS (Normal Saline) 0.9% 1,000 ML IV SCH
[2025-02-08 09:20] VITALS: BP 121/78; O2SAT 95
[2025-02-08] MEDS ORDERED: NS (Normal Saline) 0.9% 1,000 ML IV SCH (09:30)
[2025-02-08] MEDS: diphenhydrAMINE 25MG PO PRIOR TO INFUSION PO ONE (09:37)
[2025-02-08] MEDS: ACETAMINOPHEN 650MG PO PRIOR TO INFUSION PO ONE (09:37)
[2025-02-08] MEDS: inFLIXimab INJECTION 600 MG in NS 190 ML IV ONE (10:14)
[2025-02-08 11:16] VITALS: BP 133/83; O2SAT 99
[2025-02-08 11:19] VITALS: BP 133/83; TEMP 36.4; O2SAT 99
== END 2025-02-08 11:20 | disposition home or self-care (01) ==
LOC: M INFU 08:59
PROVIDERS: ATTEND Internal Medicine Gastroenterology
DX: K50.90 Crohn's disease, unspecified, without complications (principal); Z88.0 Allergy status to penicillin

== ENCOUNTER 2025-04-05 08:53 | Outpatient (CLI) | payer OTHER ==
[~2025-04-05] VITALS: Ht 160 cm; Wt 74.0 kg
[2025-04-05 09:00] VITALS: BP 124/64; O2SAT 98
[2025-04-05] MEDS ORDERED: NS (Normal Saline) 0.9% 1,000 ML IV SCH (09:30)
[2025-04-05] MEDS: diphenhydrAMINE 25MG PO PRIOR TO INFUSION PO ONE (10:07)
[2025-04-05] MEDS: ACETAMINOPHEN 650MG PO PRIOR TO INFUSION PO ONE (10:07)
[2025-04-05] MEDS: inFLIXimab INJECTION 600 MG in NS 190 ML IV ONE (10:12)
[2025-04-05 11:15] VITALS: BP 137/65; TEMP 36.7; O2SAT 98
== END 2025-04-05 11:15 | disposition home or self-care (01) ==
LOC: M INFU 08:53
PROVIDERS: ATTEND Internal Medicine Gastroenterology
DX: K50.90 Crohn's disease, unspecified, without complications (principal); Z88.2 Allergy status to sulfonamides

== ENCOUNTER 2025-05-31 09:31 | Outpatient (CLI) | payer OTHER ==
[~2025-05-31] VITALS: Ht 160 cm; Wt 72.7 kg
[~2025-05-31 09:31] MED LIST changes: +NS (Normal Saline) 0.9% 1,000 ML IV SCH
[2025-05-31 09:40] VITALS: BP 129/78; O2SAT 98
[2025-05-31] MEDS: ACETAMINOPHEN 650MG PO PRIOR TO INFUSION PO ONE (09:48)
[2025-05-31] MEDS: diphenhydrAMINE 25MG PO PRIOR TO INFUSION PO ONE (09:48)
[2025-05-31] MEDS: inFLIXimab INJECTION 600 MG in NS 190 ML IV ONE (10:24)
[2025-05-31 11:25] VITALS: BP 155/88; O2SAT 99
== END 2025-05-31 11:25 | disposition home or self-care (01) ==
LOC: M INFU 09:31
PROVIDERS: ATTEND Internal Medicine Gastroenterology
DX: K50.90 Crohn's disease, unspecified, without complications (principal); Z88.2 Allergy status to sulfonamides